=== PATIENT | male | born 1995 | race Caucasian/White ===

== ENCOUNTER 2017-05-27 11:38 | Emergency (ER) | payer MEDICAID, OTHER ==
[~2017-05-27] VITALS: Ht 175.3 cm; Wt 70.0 kg
[~2017-05-27 11:38] MED LIST: AMOX500C2 PO; NO MEDS
[2017-05-27 11:47] VITALS: Ht 175.3 cm; Wt 70.0 kg
[2017-05-27] MEDS ORDERED: KETOROLAC 30 MG INJ IV STA (12:53)
[2017-05-27] MEDS ORDERED: DEXAMETHASONE 10 MG/ML 1 ML INJ IV ONE (13:00)
[2017-05-27] MEDS ORDERED: CLINDAMYCIN 900 MG/D5W (PMX) 50 ML IVPB SCH (13:00)
[2017-05-27] MEDS ORDERED: PRED20TA PO (13:07)
[2017-05-27] MEDS ORDERED: CLIN-73 PO (13:07)
[2017-05-27] MEDS ORDERED: HYDR15SO8 PO (13:07)
--- NOTE | 2017-05-27 13:11 | ERD ---
ER Documentation Chief Complaint Date/Time DATE: 05/27/17 TIME: 13:09 Chief Complaint pt bib SO with c/o fever and sore throat x 8days HPI This is a 22-year-old male who has had a sore throat for 8 days with fever that was initially there then went away. Says he has had off and on fevers for the past 2 days. He has bilateral sinus pain in his throat with swelling. Right more than left. He does not have any difficulty swallowing liquids or food. He just is painful. No shortness of breath no drooling. No headache no rash no stiff neck or abdominal pain vomiting diarrhea. Pain is sharp with swallowing constantly dull no swelling in the neck ROS All systems reviewed and are negative except as per history of present illness. Medications Home Meds Active Scripts Hydrocodone Bit-Acetaminophen* (Lortab* Liq) 7.5 Mg-325 Mg/15 Ml Solution, 15 ML PO Q6H Y for PAIN, #120 ML Prov:SONIA DESIR DO 05/27/17 Prednisone* (Prednisone*) 20 Mg Tab, 60 MG PO DAILY for 5 Days, TAB Prov:DUSTIN DESIRSTOLOS A. DO 05/27/17 Clindamycin Hcl* (Clindamycin Hcl*) 300 Mg Capsule, 300 MG PO TID for 10 Days, CAP Prov:ALBERT DESIRS Sascha. DO 05/27/17 Amoxicillin* (Amoxicillin*) 500 Mg Cap, 500 MG PO TID for 10 Days, CAP Prov:CAROLINA SORIANO PA-C 07/03/16 Reported Medications [No Meds] No Conflict Check 04/10/14 Allergies Allergies: Coded Allergies: No Known Allergy (Unverified , 07/03/16) PMhx/Soc Hx Alcohol Use: No Hx Substance Use: No Hx Tobacco Use: No FmHx Family History: No coronary disease Physical Exam Vitals Vital Signs Date Time Temp Pulse Resp B/P Pulse Ox O2 Delivery O2 Flow Rate FiO2 05/27/17 11:47 99.1 89 16 109/67 98 Physical Exam Const: Well-developed, well-nourished Head: Atraumatic, normocephalic Eyes: Normal Conjunctiva, PERRLA, EOMI, normal sclera, no nystagmus ENT: Normal External Ears, Nose and Mouth, moist mucus membranes, bilateral tonsillar erythema and swelling right more than left both with exudate. There is some right peritonsillar cellulitis with this more severe swelling than the left. No sign of peritonsillar abscess at this time. Neck: Full range of motion. No meningismus, no lymphadenopathy. Resp: Clear to auscultation bilaterally, no wheezing, rhonchi, rales Cardio: Regular rate and rhythm, no murmurs, S1 S2 present Abd: Soft, non tender x 4, non distended. Normal bowel sounds, no guarding or rebound, no pulsitile abdominal masses or bruits Skin: No petechiae or rashes, no ecchymosis , no maculopapular rash Back: No midline or flank tenderness Ext: No cyanosis, or edema, FROM x 4, normal inspection, neurovascularly intact x 4 Neur: Awake and alert, STR 5/5 x 4, sensation intact x 4, no focal findings, cerebellum intact Psych: Normal Mood and Affect Results 24 hrs Current Medications Medications (Trade) Dose Ordered Sig/Daiana Route PRN Reason Start Time Stop Time Status Last Admin Dose Admin Clindamycin HCl/ Dextrose (Cleocin 900 Mg/ D5W (Pmx)) 50 ml @ 50 mls/hr ONCE IVPB 05/27/17 13:00 05/27/17 13:59 Dexamethasone (Decadron) 8 mg ONCE ONCE IV 05/27/17 13:00 05/27/17 13:01 DC 05/27/17 13:08 Ketorolac Tromethamine (Toradol) 30 mg ONCE STAT IV 05/27/17 12:53 05/27/17 12:54 DC 05/27/17 13:07 Procedures/MDM Patient was given intravenous clindamycin, steroids, Toradol. The patient will be discharged with clindamycin, prednisone and Lortab elixir will follow up with ENT. He was given strict precautions to return Departure Diagnosis: Primary Impression: Peritonsillar cellulitis Additional Impression: Pharyngitis Pharyngitis/tonsillitis etiology: streptococcus Qualified Code: J02.0 - Pharyngitis due to Streptococcus species Condition: Stable Patient Instructions: Strep Throat Referrals: JERSEY RICHARDS MD, APOSTOLOS A. DO May 27, 2017 13:11
[2017-05-27 14:14] VITALS: BP 105/59; PULSE 68; RESP 16; TEMP 99
== END 2017-05-27 14:15 | disposition home or self-care (01) ==
LOC: FTE 11:38
DX: J36 Peritonsillar abscess (principal)
CPT/HCPCS: 96374; 96375; J1100; J1885; Z7502; Z7610

== ENCOUNTER 2017-11-03 04:24 | Emergency (ER) | END 2017-11-03 04:35 | disposition left against medical advice (07) ==

== ENCOUNTER 2018-03-15 02:38 | Emergency (ER) | END 2018-03-15 02:54 | disposition left against medical advice (07) ==

== ENCOUNTER 2019-03-27 23:20 | Emergency (ER) | payer SELFPAY ==
[~2019-03-27] VITALS: Ht 177.8 cm; Wt 73.5 kg
[~2019-03-27 23:20] MED LIST changes: +CEPH-443 PO; +CLIN300C10 PO; +CYCL10TA7 PO; +HYDR15SO8 PO; +IBUP800T48 PO; +PRED20TA PO; +SULF1TAB31 PO
[2019-03-27 23:30] VITALS: Ht 177.8 cm; Wt 73.5 kg
[2019-03-28] MEDS ORDERED: KETOROLAC 30 MG INJ IM STA (01:09)
--- NOTE | 2019-03-28 01:09 | ERD ---
ER Documentation Chief Complaint Chief Complaint chest pain started this morning radiates to upper shoulder HPI This is a 23-year-old male presents emergency department with complaints of a nterior chest pain that started today. Denies headache, head injury, loss of consciousness, dizziness, neck pain, neck stiffness, throat pain, difficulty swallowing, difficulty breathing lying flat, shoulder pain, back pain, abdominal pain, nausea, vomiting, constipation, diarrhea, urinary symptoms, loss of bowel and bladder control, trauma, injury, falls, difficulty walking due to pain, numbness or tingling sensation, calf pain, recent travel, recent major surgery in the last 3 weeks, calf pain, recent long travel, recent exposure to any illness, recent antibiotic use in the last 3 months, fever, chills, seizures. Past medical history: Denies. Denies family history of heart attack before the age of 50. Surgical history: Denies. Social: Denies smoking, use of alcoholic beverages, use of illegal drugs. ROS All systems reviewed and are negative except as per history of present illness. Medications Home Meds Active Scripts Cyclobenzaprine Hcl* (Cyclobenzaprine Hcl*) 10 Mg Tablet, 10 MG PO TID PRN for MUSCLE SPASMS, #15 TAB Prov:CHAPOILABANTRANAR F 03/28/19 Ibuprofen* (Motrin*) 800 Mg Tab, 800 MG PO Q6H PRN for PAIN AND OR ELEVATED TEMP, #30 TAB Prov:TRAN LAWSONAR F 03/28/19 Cephalexin* (Keflex*) 500 Mg Capsule, 500 MG PO BID for 7 Days, CAP Prov:JUDITH BOLAND 11/03/17 Sulfamethoxazole/Trimethoprim* (Bactrim Ds* Tablet) 1 Each Tablet, 1 TAB PO BID, #14 TAB Prov:JUDITH BOLAND 11/03/17 Hydrocodone Bit-Acetaminophen* (Lortab* Liq) 7.5 Mg-325 Mg/15 Ml Solution, 15 ML PO Q6H PRN for PAIN, #120 ML Prov:SONIA DESIR DO 05/27/17 Prednisone* (Prednisone*) 20 Mg Tab, 60 MG PO DAILY for 5 Days, TAB Prov:SONIA DESIR DO 05/27/17 Clindamycin Hcl* (Clindamycin Hcl*) 300 Mg Capsule, 300 MG PO TID for 10 Days, CAP Prov:SONIA DESIR DO 05/27/17 Amoxicillin* (Amoxicillin*) 500 Mg Cap, 500 MG PO TID for 10 Days, CAP Prov:CAROLINA SORIANO PA-C 07/03/16 Reported Medications [No Meds] No Conflict Check 04/10/14 Allergies Allergies: Coded Allergies: No Known Allergy (Unverified , 11/03/17) PMhx/Soc History of Surgery: No Anesthesia Reaction: No Hx Neurological Disorder: No Hx Respiratory Disorders: No Hx Cardiac Disorders: No Hx Psychiatric Problems: No Hx Miscellaneous Medical Probl: No Hx Alcohol Use: No Hx Substance Use: No Hx Tobacco Use: No Physical Exam Vitals Physical Exam Head: Atraumatic Eyes: Normal Conjunctiva ENT: Normal External Ears, Nose and Mouth. Bilateral ears: TMs are not erythematous. No bleeding. No discharge. No hearing loss. No mastoid tenderness. Nose: There is no frontal or maxillary sinus tenderness palpation. Throat: Uvula is in midline and nondisplaced. Tonsils are +1 bilaterally without redness and without exudates. Tolerating secretions. Patent airway. Speaks full and clear sentences. No tripoding. Neck: Full range of motion. No meningismus. No nuchal rigidity. No signs of meningeal irritation. Resp: Clear to auscultation bilaterally. No accessory muscle use in breathing. Cardio: Regular rate and rhythm, no murmurs. Chest area: Tenderness to palpation to anterior area. No crepitus. Abd: Soft, non tender, non distended. Normal bowel sounds. Negative De Luna sign. Skin: No petechiae or rashes. Color appears normal for ethnicity. No skin tenting. No signs of severe dehydration. Back: No midline or flank tenderness Ext: No cyanosis, or edema Neur: Awake and alert. No neurological deficits. Psych: Normal Mood and Affect Results 24 hrs Current Medications Medications Dose Sig/Daiana Start Time Status Last (Trade) Ordered Route PRN Stop Time Admin Dose Reason Admin Ketorolac 30 mg ONCE STAT 03/28/19 DC 03/28/19 Tromethamine IM 01:09 01:24 (Toradol) 03/28/19 01:11 10 mg ONCE ONCE 03/28/19 DC 03/28/19 Cyclobenzapri PO 01:30 01:24 ne HCl 03/28/19 01:31 (Flexeril) Procedures/MDM Diagnostic tests: EKG 1: Normal sinus rhythm with a ventricular rate of 72 bpm. No STEMI. Read by supervising physician. EKG 2: Normal sinus rhythm with a ventricular rate of 62 bpm. No STEMI. Read by supervising physician. Treatment: Toradol IM. Flexeril p.o. Re-evaluation: Denies neck pain, chest pain, back pain, abdominal pain. No neurovascular deficit. No neurological deficits. Differential diagnosis I have low suspicion for pneumothorax, hemothorax, acute myocardial infarction, pneumonia. Final diagnosis: Costochondritis. Prescription: Motrin. Flexeril. Follow-up with PCP in the next 24-48 hours. Come back here in the emergency department for any new symptoms or any worsening symptoms. All questions and concerns were answered. Patient and family members verbalized understanding and agreed with plan of care. Hemodynamically stable on discharge. Departure Diagnosis: Primary Impression: Chest pain Additional Impressions: Costochondritis Chest wall pain Condition: Stable Additional Instructions: Follow-up with PCP in the next 24-48 hours. Come back here in the emergency department for any new symptoms or any worsening symptoms. LAURA LAWSON Mar 28, 2019 01:09
[2019-03-28] MEDS ORDERED: CYCLOBENZAPRINE 10 MG TAB PO ONE (01:30)
[2019-03-28 02:03] VITALS: BP 129/84; PULSE 61; RESP 18
== END 2019-03-28 02:04 | disposition home or self-care (01) ==
LOC: FTE 23:20
DX: M94.0 Chondrocostal junction syndrome [Tietze] (principal)
CPT/HCPCS: 93005; 96372; 99284; J1885